=== PATIENT | female | born 1960 | race Caucasian/White ===

== ENCOUNTER → 2021-12-17 11:08 | Outpatient (CLI) | payer OTHER, SELFPAY | PROVIDERS: PCP Student in an Organized Health Care Education/Training Program; Referring Provider Student in an Organized Health Care Education/Training Program; Visit Provider Student in an Organized Health Care Education/Training Program | DX: M79.673 Pain in unspecified foot (principal); G62.9 Polyneuropathy, unspecified | CPT/HCPCS: 95886; 95909 ==

== ENCOUNTER 2022-07-23 14:06 | Emergency (ER) | payer OTHER, SELFPAY ==
[2022-07-23] VITALS (7 sets, daily range): BP systolic 135–163; BP diastolic 67–89; PULSE 76–105; RESP 16–20; TEMP 36.4; O2SAT 98–100; BMI 41.9
[2022-07-23 14:48] LABS: Add Manual Diff / Slide Review NO; Basophils Absolute Auto 100 /uL (0-100); Basophils Percent Auto 0.7 % (0-2); Eosinophils Absolute Auto 300 /uL (0-450); Hematocrit 42.4 % (36-46); Hemoglobin 14.3 g/dL (12.0-16.0); Lymphocytes Absolute Auto 1700 /uL (1100-4500); Lymphocytes Percent Auto 22.2 % (25-40); Mean Corpuscular HGB Conc 33.7 % (30-36); Mean Corpuscular Hemoglobin 29.1 PG (26-34); Mean Corpuscular Volume 86.3 fL (80-100); Monocytes Absolute Auto 500 /uL (0-900); Monocytes Percent Auto 5.9 % (3-14); Neutrophils Absolute Auto 5300 /uL (1500-7000); Neutrophils Percent Auto 67.2 % (50-75); Platelet Count 197 X10^3/uL (150-400); Red Blood Cell Count 4.92 X10^6/uL (4.0-5.2); Red Cell Distribution Width 14.1 % (11.6-14.8); White Blood Cell Count 7.8 X10^3/uL (4.5-11.0)
[2022-07-23 15:00] LABS: Alanine Aminotransferase 34 IU/L (<35); Albumin 4.8 g/dL (3.5-5.0); Albumin Globulin Ratio 1.5 (1.0-2.8); Alkaline Phosphatase 95 U/L (38-126); Aspartate Aminotransferase 33 IU/L (14-36); BUN Creatinine Ratio 29.6 (6-22); Bilirubin Total 1.9 mg/dL (0.2-1.3); Blood Urea Nitrogen 16 mg/dL (7-17); Calcium 9.6 mg/dL (8.4-10.2); Carbon Dioxide 25 mmol/L (22-32); Chloride 102 mmol/L (98-107); Estimated Glomerular Filt Rate > 60 mL/min (>60); Globulin 3.3 g/dL (1.7-4.1); Glucose 111 mg/dL (80-110); HEMOLYSIS < 15 (0-50); Potassium 3.6 mmol/L (3.4-5.1); Sodium 140 mmol/L (137-145); Total Protein 8.1 g/dL (6.3-8.2)
[2022-07-23 15:08] LABS: NT-proBNP (BNP-Adult 18+) 69 pg/mL (<125)
--- NOTE | 2022-07-23 17:15 | PC.NURSE ---
in waiting room at 1600, spouse got her a large aluminum baking hernandez to soak her feet in cold water.
--- NOTE | 2022-07-23 17:41 | ED_ITS ---
HPI - Extremity Injury (Lower) <Morris Black PA-C - Last Filed: 07/23/22 20:23> General Chief Complaint: Extremity Injury, Lower Stated Complaint: both feet are swollen & in pain t-5 Time Seen by Provider: 07/23/22 17:17 Source: patient Mode of arrival: Ambulatory History of Present Illness HPI Narrative: 62-year-old female presents to the ED with 3 days of worsening bilateral foot pain. Patient states that her feet have been swelling and have been painful for the past few years, however there has been a recent exacerbation in her symptoms over the last 3 days. Patient denies numbness, tingling, weakness. Patient is able to bear weight and walk. Patient denies cardiac history. Patient denies shortness of breath, chest pain, fever, chills. Patient denies trauma. Related Data Home Medications Medication Instructions Recorded Confirmed citalopram 20 mg tablet 20 mg PO HS ##0 11/12/10 loratadine 10 mg tablet 10 mg PO HS ##0 08/06/16 Previous Rx's Medication Instructions Recorded aspirin 81 mg tablet,delayed 81 mg PO BID #60 tabs 08/10/16 release oxycodone 5 mg tablet 5 mg PO Q4HP PRN #90 tabs 08/10/16 PROMETHAZINE HCL/CODEINE 5 ml PO Q6HP PRN #60 mL 11/21/16 prednisone 20 mg tablet 40 mg PO [facility] 4 days #0 tabs 11/21/16 furosemide 20 mg tablet (Lasix) 20 mg PO DAILY #10 tabs 07/23/22 Allergies Allergy/AdvReac Type Severity Reaction Status Date / Time Sulfa (Sulfonamide Allergy Severe RASH Unverified 11/30/17 11:51 Antibiotics) [SULFA (SULFONAMIDE ANTIBIOTICS)] Penicillins [PENICILLINS] Allergy Unknown UNKNOWN Unverified 11/30/17 11:51 PER PT HAPPENED WHEN I WAS 2 Review of Systems <Morris Black PA-C - Last Filed: 07/23/22 20:23> Review of Systems ROS Unobtainable: All systems reviewed & are unremarkable except as noted in HPI and below Constitutional Constitutional: Denies chills, Denies fatigue, Denies fever(s), Denies frequent falls, Denies lethargy and Denies weakness Eyes Eyes: Denies change in vision, Denies eye discharge, Denies irritation and Denies loss of vision ENT Ears, Nose, Mouth, and Throat: Denies change in voice, Denies dizziness, Denies neck pain, Denies sore throat and Denies throat swelling Cardiovascular Cardiovascular: Denies chest pain, Denies irregular heart rhythm, Denies lightheadedness, Denies palpitations, Denies dyspnea, Denies dyspnea on exertion and Denies orthopnea Respiratory Respiratory: Denies cough, Denies dyspnea, Denies dyspnea on exertion and Denies wheezing Gastrointestinal Gastrointestinal: Denies abdominal pain, Denies change in bowel habits, Denies diarrhea, Denies nausea and Denies vomiting Genitourinary Genitourinary: Denies hematuria, Denies flank pain, Denies urinary incontinence and Denies urinary urgency Musculoskeletal Musculoskeletal: Denies back pain, Denies muscle weakness, Denies neck pain, Denies numbness and Denies tingling Comments: Bilateral foot pain and swelling Integumentary/Breasts Skin/Breast: Denies pruritus, Denies erythema, Denies rash and Denies wounds Neurologic Neurologic: Denies behavioral changes, Denies confusion, Denies dizziness, Denies frequent falls, Denies loss of vision, Denies numbness, Denies tingling and Denies weakness Psychiatric Psychiatric: Denies anxiety, Denies behavioral changes, Denies confusion, Denies depression, Denies homicidal ideation and Denies suicidal ideation Endocrine Endocrine: Denies fatigue, Denies flushing and Denies palpitations Hematologic/Lymphatic Hematologic/Lymphatic: Denies easy bruising Allergic/Immunologic Allergic/Immunologic: Denies urticaria, Denies throat swelling and Denies wheezing Patient History <Morris Black PA-C - Last Filed: 07/23/22 20:23> Social History Smoking Status: Never smoker Smoking Status: Never smoker Substance Use Type: does not use Exam <Morris Black PA-C - Last Filed: 07/23/22 20:23> Narrative Exam Narrative: Const General:?cooperative, healthy appearing and comfortable [facility] Head:?normal to inspection Ears:?hearing grossly normal bilaterally Nose:?external nose normal Face and sinus:?normal facial exam and sinuses nontender Mouth:?oral mucosae normal Throat:?posterior oropharynx normal Eyes General:?appearance normal, both eyes and all related structures Neck Neck:?normal visual inspection and no lymphadenopathy noted Resp Effort & Inspection:?normal respiratory effort Auscultation:?clear to auscultation bilaterally Cardio Rate:?regular rate Rhythm:?regular rhythm Musculoskeletal Bilateral feet appear erythematous, swollen. There are a few scattered abr asions on the top of the right foot. There is no sign of cellulitis. Strength and sensation is intact. Patient is able to bear weight and walk. Pulses are intact bilaterally. Patient is neurovascularly intact. Neuro General:?patient alert, patient awake and patient oriented x3 Initial Vital Signs Initial Vital Signs: Vital Signs Temperature 97.6 F 07/23/22 14:13 Pulse Rate 105 H 07/23/22 14:13 Respiratory Rate 20 07/23/22 14:13 Blood Pressure 137/71 07/23/22 14:13 Pulse Oximetry 98 07/23/22 14:13 Oxygen Delivery Method 07/23/22 14:13 <Luz Hunter DO - Last Filed: 07/24/22 01:34> Initial Vital Signs Initial Vital Signs: Vital Signs Temperature 97.6 F 07/23/22 14:13 Pulse Rate 105 H 07/23/22 14:13 Respiratory Rate 20 07/23/22 14:13 Blood Pressure 137/71 07/23/22 14:13 Pulse Oximetry 98 07/23/22 14:13 Oxygen Delivery Method 07/23/22 14:13 Course <Morris Black PA-C - Last Filed: 07/23/22 20:23> Orders Ordered: ED Orders 07/23/22 14:30 BNP [NT-proBNP (BNP-Adult 18+)] Stat Complete Blood Count AUTO DIFF Stat Comprehensive Metabolic Panel Stat Vital Signs Vital signs: Vital Signs - 8 hr 07/23/22 17:30 07/23/22 17:31 07/23/22 17:31 Pulse Rate 84 76 Respiratory Rate 16 Blood Pressure 143/67 H Pulse Oximetry 99 100 Oxygen Delivery Method Room Air 07/23/22 18:00 07/23/22 18:00 07/23/22 18:30 Pulse Rate 80 Respiratory Rate Blood Pressure 140/70 135/79 Pulse Oximetry 100 Oxygen Delivery Method 07/23/22 18:30 Pulse Rate 92 H Respiratory Rate Blood Pressure Pulse Oximetry 100 Oxygen Delivery Method <DO Noy Cuevas Last Filed: 07/24/22 01:34> Orders Ordered: ED Orders 07/23/22 14:30 BNP [NT-proBNP (BNP-Adult 18+)] Stat Complete Blood Count AUTO DIFF Stat Comprehensive Metabolic Panel Stat Vital Signs Vital signs: Vital Signs - 8 hr 07/23/22 17:30 07/23/22 17:31 07/23/22 17:31 Pulse Rate 84 76 Respiratory Rate 16 Blood Pressure 143/67 H Pulse Oximetry 99 100 Oxygen Delivery Method Room Air 07/23/22 18:00 07/23/22 18:00 07/23/22 18:30 Pulse Rate 80 Respiratory Rate Blood Pressure 140/70 135/79 Pulse Oximetry 100 Oxygen Delivery Method 07/23/22 18:30 Pulse Rate 92 H Respiratory Rate Blood Pressure Pulse Oximetry 100 Oxygen Delivery Method MDM - Extremity Injury (Lower) <Morris Black PA-C - Last Filed: 07/23/22 20:23> Lab Data Result diagrams: 07/23/22 14:30 07/23/22 14:30 Labs: Lab Results 07/23/22 07/23/22 Range/Units 14:30 14:30 WBC 7.8 (4.5-11.0) X10^3/uL RBC 4.92 (4.0-5.2) X10^6/uL Hgb 14.3 (12.0-16.0) g/dL Hct 42.4 (36-46) % MCV 86.3 (80-100) fL MCH 29.1 (26-34) PG MCHC 33.7 (30-36) % RDW 14.1 (11.6-14.8) % Plt Count 197 (150-400) X10^3/uL Neut % (Auto) 67.2 (50-75) % Lymph % (Auto) 22.2 L (25-40) % Isabella % (Auto) 5.9 (3-14) % Eos % (Auto) 4.0 (2-4) % Baso % (Auto) 0.7 (0-2) % Neut # (Auto) 5300 (7023-7324) /uL Lymph # (Auto) 1700 (3632-3718) /uL Isabella # (Auto) 500 (0-900) /uL Eos # (Auto) 300 (0-450) /uL Baso # (Auto) 100 (0-100) /uL Sodium 140 (137-145) mmol/L Potassium 3.6 (3.4-5.1) mmol/L Chloride 102 (98-107) mmol/L Carbon Dioxide 25 (22-32) mmol/L BUN 16 (7-17) mg/dL Creatinine 0.54 (0.52-1.04) mg/dL Estimated GFR > 60 (>60) mL/min BUN/Creatinine Ratio 29.6 H (6-22) Glucose 111 H (80-110) mg/dL Calcium 9.6 (8.4-10.2) mg/dL Total Bilirubin 1.9 H (0.2-1.3) mg/dL AST 33 (14-36) IU/L ALT 34 (<35) IU/L Alkaline Phosphatase 95 (38-126) U/L NT-Pro-B Natriuret Pep 69 (<125) pg/mL Total Protein 8.1 (6.3-8.2) g/dL Albumin 4.8 (3.5-5.0) g/dL Globulin 3.3 (1.7-4.1) g/dL Albumin/Globulin Ratio 1.5 (1.0-2.8) MDM Narrative Medical decision making narrative: 62-year-old female presents to the ED with 3 days of worsening bilateral foot pain. Concern for PVD versus PAD versus CHF versus other. Unlikely cellulitis or DVT, given bilateral and symmetric nature of the swelling and erythema. Disc ussed vascular and Cardiology follow-up with patient. Recommend trialing Lasix for a few days to see if her symptoms improve, although the BNP was not elevated. Patient agrees to follow-up with Cardiology, vascular, PCP and trial the Lasix. ED return precautions were discussed with patient. Patient verbalized understanding. <Luz Hunter, DO - Last Filed: 07/24/22 01:34> Lab Data Labs: Lab Results 07/23/22 07/23/22 Range/Units 14:30 14:30 WBC 7.8 (4.5-11.0) X10^3/uL RBC 4.92 (4.0-5.2) X10^6/uL Hgb 14.3 (12.0-16.0) g/dL Hct 42.4 (36-46) % MCV 86.3 (80-100) fL MCH 29.1 (26-34) PG MCHC 33.7 (30-36) % RDW 14.1 (11.6-14.8) % Plt Count 197 (150-400) X10^3/uL Neut % (Auto) 67.2 (50-75) % Lymph % (Auto) 22.2 L (25-40) % Isabella % (Auto) 5.9 (3-14) % Eos % (Auto) 4.0 (2-4) % Baso % (Auto) 0.7 (0-2) % Neut # (Auto) 5300 (4720-8238) /uL Lymph # (Auto) 1700 (7751-7693) /uL Isabella # (Auto) 500 (0-900) /uL Eos # (Auto) 300 (0-450) /uL Baso # (Auto) 100 (0-100) /uL Sodium 140 (137-145) mmol/L Potassium 3.6 (3.4-5.1) mmol/L Chloride 102 (98-107) mmol/L Carbon Dioxide 25 (22-32) mmol/L BUN 16 (7-17) mg/dL Creatinine 0.54 (0.52-1.04) mg/dL Estimated GFR > 60 (>60) mL/min BUN/Creatinine Ratio 29.6 H (6-22) Glucose 111 H (80-110) mg/dL Calcium 9.6 (8.4-10.2) mg/dL Total Bilirubin 1.9 H (0.2-1.3) mg/dL AST 33 (14-36) IU/L ALT 34 (<35) IU/L Alkaline Phosphatase 95 (38-126) U/L NT-Pro-B Natriuret Pep 69 (<125) pg/mL Total Protein 8.1 (6.3-8.2) g/dL Albumin 4.8 (3.5-5.0) g/dL Globulin 3.3 (1.7-4.1) g/dL Albumin/Globulin Ratio 1.5 (1.0-2.8) Discharge Plan Departure Patient Disposition: Home Clinical Impression: Foot pain Instructions: DI for Foot Pain Activity Restrictions/Additional Instructions: You were evaluated in the ED today for bilateral foot pain. Your labs and physical exam were reassuring. Your pulses are intact in both feet. You have good strength and sensation. It is possible that your foot pain and swelling mi ght be related to cardiac causes. You are being given a trial of Lasix to take for the next few days to see if your symptoms improve. Please also follow-up with cardiology and vascular specialist for further evaluation. Return to the ED if you experience chest pain, shortness of breath, numbness, tingling, weakness. Prescriptions: New furosemide [Lasix] 20 mg tablet 20 mg PO DAILY Qty: 10 0RF No Action citalopram 20 MG tablet 20 mg PO HS Qty: 0 loratadine 10 MG tablet 10 mg PO HS Qty: 0 aspirin 81 MG tablet,delayed release (DR/EC) 81 mg PO BID Qty: 60 0RF oxycodone 5 MG tablet 5 mg PO Q4HP PRNQty: 90 0RF prednisone 20 MG tablet 40 mg PO [facility]CC 4 Days Qty: 0 0RF PROMETHAZINE HCL/CODEINE 5 ml PO Q6HP PRNQty: 60 0RF Referrals: Duane Lawrence DO [Primary Care Provider] - Visit Report Forms: Patient Portal/API <Luz Hunter DO - Last Filed: 07/24/22 01:34> Cosign ED Attending Josiasature Attestation: I was immediately available in the department for consultation. Documentation has been reviewed. I agree with assessment and plan.
== END 2022-07-23 18:36 | disposition home or self-care (01) ==
PROVIDERS: Emergency Medicine; Emergency Provider Student in an Organized Health Care Education/Training Program; PCP Student in an Organized Health Care Education/Training Program
DX: M79.672 Pain in left foot (principal); M79.671 Pain in right foot
CPT/HCPCS: 36415; 80053; 83880; 85025; 99283

== ENCOUNTER → 2022-08-09 06:58 | Outpatient (CLI) | payer OTHER, SELFPAY ==
--- NOTE | 2022-08-09 | DI.ECHO.S_ITS ---
[place] [facility]---------+ [facility] +---------+ : : [address] : [address] : : : : [id number] : : : : Phone: [phone]+ Echocardiogram Report + + :Name: ZOFIA TOMAS Study Date: 08/09/2022 Height: 66 in : :[facility] ReadingLocation: Weight: 260 lb : : Gender: Female BSA: 2.2 m2 : :: 1960 Age: 62 yrs BP: 120/77 mmHg: :Reason For Study: EDEMA : : Performed By: Enrique Delgado : :Referring: ADRIANO MIRANDA : + + Interpretation Summary The left ventricle is normal in size. Left ventricular systolic function appears normal without focal wall motion abnormalities. The ejection fraction is estimated to be 60-65%. Diastolic parameters suggest a relaxation abnormality of the left ventricle, consistent with probable normal filling pressures. The right ventricle is normal in size and function. The right ventricular systolic pressure is estimated to be at least 26 mmHg based on an estimated right atrial pressure of 3 mm Hg. Both atria are normal in size. There is moderate aortic stenosis. The calculated aortic valve area is 1.3 cm2. The peak aortic velocity is 3.73 m/sec. There is no other significant valvular heart disease. The aortic root is normal size. Procedure: A two-dimensional transthoracic echocardiogram with color flow and Doppler was performed. The study quality was technically adequate. There is no prior echocardiogram noted for this patient. The patient was in normal sinus rhythm during the exam. Left Ventricle: The left ventricle is normal in size. There is normal left ventricular wall thickness. Left ventricular systolic function appears normal without focal wall motion abnormalities. The ejection fraction is estimated to be 60-65%. Diastolic parameters suggest a relaxation abnormality of the left ventricle, consistent with probable normal filling pressures. Right Ventricle: The right ventricle is normal in size and function. Atria: Both atria are normal in size. There is no Doppler evidence for an atrial septal defect. Mitral Valve: There is mild mitral annular calcification. There is trace mitral regurgitation. Aortic Valve: The aortic valve is moderately calcified. There is moderate aortic stenosis. The peak aortic velocity is 3.73 m/sec. The aortic valve mean gradient is 35.3 mmHg. The calculated aortic valve area is 1.3 cm2. No aortic regurgitation is present. Tricuspid Valve: The tricuspid valve is normal in structure and function. There is trace tricuspid regurgitation. The right ventricular systolic pressure is estimated to be at least 26 mmHg based on an estimated right atrial pressure of 3 mm Hg. Pulmonic Valve: The pulmonic valve is normal in structure and function. There is no pulmonic valvular regurgitation. There is no other significant valvular heart disease. Great Vessels: The aortic root is normal size. The dimensions of the ascending aorta are normal. The pulmonary artery is normal size. The IVC is of normal diameter and collapses greater than 50% with a sniff. This suggests a low right atrial pressure of 3 mm Hg. Pericardium/ Pleura There is no pericardial effusion. There is no pleural effusion. MMode/2D Measurements & Calculations LVIDd: 5.0 cm LVOT diam: 2.6 cm LVIDs: 3.2 cm Ao root diam: 3.2 cm FS: 36.1 % asc Aorta Diam: 3.3 cm EPSS: 0.91 cm Ao Arch Diam (Prox Trans): 2.7 cm IVSd: 0.99 cm LVPWd: 1.0 cm LV clemons. diameter/BSA (cm/m^2): 2.2 LV sys. diameter/BSA (cm/m^2): 1.4 LA A2 area: 20.4 cm2 RA long axis: 4.6 cm LA A4 area: 17.9 cm2 RA area: 15.6 cm2 LA length (vol): 5.4 cm RA vol: 44.8 ml LA vol: 57.3 ml RA : 20.1 ml/m2 LA vol index: 25.6 ml/m2 IVC diam: 1.6 cm RVD1 (basal): 3.6 cm RVD2 (mid): 3.8 cm TAPSE: 1.9 cm Doppler Measurements & Calculations Ao V2 max: 373.7 cm/sec LVOT Max Madhav: 90.6 cm/sec Ao V2 mean: 283.1 cm/sec LV V1 max P.3 mmHg Ao max P.9 mmHg LV V1 VTI: 26.1 cm Ao mean P.3 mmHg SRUTHI(I,D): 1.6 cm2 Ao V2 VTI: 88.3 cm SRUTHI(V,D): 1.3 cm2 sev ratio: 0.30 SRUTHI indexed to BSA (cm^2/m^2): 0.72 MV E max madhav: 81.8 cm/sec TR max madhav: 241.8 cm/sec MV A max madhav: 98.6 cm/sec TR max P.4 mmHg MV E/A: 0.83 PA V2 max: 81.0 cm/sec Med Peak E' Madhav: 6.8 cm/sec PA V2 mean: 55.8 cm/sec E/E' med: 12.0 PA mean P.4 mmHg Lat Peak E' Madhav: 5.6 cm/sec PA pr(Accel): 39.6 mmHg E/E' lat: 14.5 E/e' average: 13.3 MV dec time: 0.19 sec SV(LVOT): 142.7 ml Reading Physician:05:21 PM
== END ==
PROVIDERS: PCP Student in an Organized Health Care Education/Training Program; Referring Provider Student in an Organized Health Care Education/Training Program; Visit Provider Student in an Organized Health Care Education/Training Program
DX: R60.0 Localized edema (principal); I08.0 Rheumatic disorders of both mitral and aortic valves
CPT/HCPCS: 93306

== ENCOUNTER 2022-08-11 22:45 | Emergency (ER) | payer OTHER, SELFPAY ==
[2022-08-11 22:45] VITALS: BP 142/74; PULSE 107; RESP 20; TEMP 36.4; O2SAT 97
[2022-08-11 22:54] VITALS: BP 142/74; PULSE 107; O2SAT 98
[2022-08-11 23:00] VITALS: BP 138/78; PULSE 100; O2SAT 99
--- NOTE | 2022-08-11 23:09 | ED.EXTPRO ---
HPI - Extremity Problem General Chief complaint: Extremity Problem,Nontraumatic Stated complaint: sores on both feet Time Seen by Provider: 08/11/22 22:55 Source: family Mode of arrival: Wheelchair History of Present Illness HPI Narrative: Patient is a 62-year-old female who is here for evaluation sores and redness and drainage of sores on both of her feet. This has been present for several months. It has been worsening over the past couple weeks. She has seen her primary doctor. She sees her primary doctor has ordered some studies but his specific diagnosis has not been made. She was supposed to see Dermatology yesterday but this was canceled because of the weather. She is a follow-up with them tomorrow. She has used some topical steroids which did not seem to improve any of the symptoms. She also states that it did not make things worse. They have also been using topical antibiotic ointment which also does not seem to be helping symptoms. Is difficult for her to walk because of the pain. She does describe lower extremity swelling. No fevers. Related Data Home Medications Medication Instructions Recorded Confirmed citalopram 20 mg tablet 20 mg PO HS ##0 11/12/10 loratadine 10 mg tablet 10 mg PO HS ##0 08/06/16 Previous Rx's Medication Instructions Recorded aspirin 81 mg tablet,delayed 81 mg PO BID #60 tabs 08/10/16 release oxycodone 5 mg tablet 5 mg PO Q4HP PRN #90 tabs 08/10/16 PROMETHAZINE HCL/CODEINE 5 ml PO Q6HP PRN #60 mL 11/21/16 prednisone 20 mg tablet 40 mg PO [facility] 4 days #0 tabs 11/21/16 furosemide 20 mg tablet (Lasix) 20 mg PO DAILY #10 tabs 07/23/22 doxycycline monohydrate 100 mg 100 mg PO BID 10 days #20 tabs 08/11/22 tablet Allergies Allergy/AdvReac Type Severity Reaction Status Date / Time Sulfa (Sulfonamide Allergy Severe RASH Unverified 11/30/17 11:51 Antibiotics) [SULFA (SULFONAMIDE ANTIBIOTICS)] Penicillins [PENICILLINS] Allergy Unknown UNKNOWN Unverified 11/30/17 11:51 PER PT HAPPENED WHEN I WAS 2 Review of Systems Constitutional Constitutional: Reports system reviewed and no additional complaints, except as documented Musculoskeletal Musculoskeletal: Reports system reviewed and no additional complaints, except as documented Integumentary/Breasts Skin/Breast: Reports system reviewed and no additional complaints, except as documented Neurologic Neurologic: Reports system reviewed and no additional complaints, except as documented Hematologic/Lymphatic On Anticoagulants: No Patient History Social History Smoking Status: Never smoker Smoking Status: Never smoker Substance Use Type: does not use Exam Initial Vital Signs Initial Vital Signs: Vital Signs Temperature 97.5 F L 08/11/22 22:45 Pulse Rate 107 H 08/11/22 22:45 Respiratory Rate 20 08/11/22 22:45 Blood Pressure 142/74 H 08/11/22 22:45 Pulse Oximetry 97 08/11/22 22:45 Oxygen Delivery Method 08/11/22 22:45 Const General: cooperative and comfortable HENMT Head: normal to inspection Resp Effort & Inspection: normal respiratory effort Cardio Rate: regular rate Skin Other: Patient does have redness and ulcerations and thickness to both of her lower extremities from her toes to just proximal to her ankles. It is equal on both sides. There is some clear drainage from the skin in this area. There are no pustules noted. Extrem General: edema Course Orders Ordered: ED Orders 08/11/22 21:07 Wound Culture and Gram Stain Stat Wound Culture and Gram Stain Stat Vital Signs Vital signs: Vital Signs - 8 hr 08/11/22 22:45 08/12/22 00:11 08/11/22 22:54 Temperature 97.5 F L 98.1 F Pulse Rate 107 H 95 H Respiratory Rate 20 18 Blood Pressure 142/74 H 154/88 H 142/74 H Pulse Oximetry 97 100 Oxygen Delivery Method Room Air Room Air 08/11/22 22:54 08/11/22 23:00 08/11/22 23:00 Temperature Pulse Rate 107 H 100 H Respiratory Rate Blood Pressure 138/78 Pulse Oximetry 98 99 Oxygen Delivery Method 08/11/22 23:30 08/11/22 23:30 08/12/22 00:00 Temperature Pulse Rate 95 H Respiratory Rate Blood Pressure 157/75 H 164/77 H Pulse Oximetry 99 Oxygen Delivery Method 08/12/22 00:00 Temperature Pulse Rate 100 H Respiratory Rate Blood Pressure Pulse Oximetry 99 Oxygen Delivery Method MDM - Extremity (Nontraumatic) MDM Narrative Medical decision making narrative: Patient is afebrile. Nontoxic appearing. Does have swelling to both of her lower extremities. Symptoms have been present for the past several months. She has seen her primary doctor. She is scheduled see Dermatology tomorrow. The redness is bilateral and it is equal. Given her presentation feel this is most likely more of a dermatitis/venous stasis changes rather than cellulitis however the patient has not been on any oral antibiotics. Cultures were obtained of both lower extremities. Will start her on doxycycline to see if this does not help her symptoms. Will have her keep her appointment with Dermatology tomorrow. She was given return precautions. She expressed understanding and agreement. Discharge Plan Departure Patient Disposition: Home Clinical Impression: Rash Activity Restrictions/Additional Instructions: I recommend you take the antibiotics as directed. They were sent to [facility] in [place]. I think that the appointment with Dermatology that you have tomorrow is very appropriate. You can let them know that we did do wound cultures today. These take several days to result. Return to the emergency department for any new symptoms. Prescriptions: New doxycycline monohydrate 100 mg tablet 100 mg PO BID 10 Days Qty: 20 0RF No Action citalopram 20 MG tablet 20 mg PO HS Qty: 0 loratadine 10 MG tablet 10 mg PO HS Qty: 0 aspirin 81 MG tablet,delayed release (DR/EC) 81 mg PO BID Qty: 60 0RF oxycodone 5 MG tablet 5 mg PO Q4HP PRNQty: 90 0RF prednisone 20 MG tablet 40 mg PO AMCC 4 Days Qty: 0 0RF PROMETHAZINE HCL/CODEINE 5 ml PO Q6HP PRNQty: 60 0RF furosemide [Lasix] 20 mg tablet 20 mg PO DAILY Qty: 10 0RF Referrals: Duane Lawrence DO [Primary Care Provider] - Visit Report Forms: Patient Portal/API
[2022-08-11 23:30] VITALS: BP 157/75; PULSE 95; O2SAT 99
[2022-08-12] VITALS: BP 164/77; PULSE 100; O2SAT 99
--- NOTE | 2022-08-12 00:09 | PC.NURSE ---
Xeroform gauze & kerlix dressings applied to bilateral feet. Pt tolerated well.
[2022-08-12 00:11] VITALS: BP 154/88; PULSE 95; RESP 18; TEMP 36.7; O2SAT 100
== END 2022-08-12 00:13 | disposition home or self-care (01) ==
PROVIDERS: Emergency Provider Emergency Medicine; PCP Student in an Organized Health Care Education/Training Program
DX: R21 Rash and other nonspecific skin eruption (principal); Z79.899 Other long term (current) drug therapy
CPT/HCPCS: 87070; 87075; 87077; 87147; 87185; 87186; 87205; 99282

== ENCOUNTER → 2022-09-01 09:27 | Outpatient (CLI) | payer OTHER, SELFPAY | PROVIDERS: PCP Student in an Organized Health Care Education/Training Program; Referring Provider Student in an Organized Health Care Education/Training Program; Visit Provider Surgery | DX: R60.0 Localized edema (principal); L03.119 Cellulitis of unspecified part of limb | CPT/HCPCS: 11042; 97597; 97598; 99204; 99213 ==

== ENCOUNTER → 2022-09-06 15:15 | Outpatient (CLI) | payer OTHER, SELFPAY | PROVIDERS: PCP Student in an Organized Health Care Education/Training Program; Referring Provider Student in an Organized Health Care Education/Training Program; Visit Provider Surgery | DX: R60.0 Localized edema (principal); L03.119 Cellulitis of unspecified part of limb; L97.822 Non-pressure chronic ulcer of other part of left lower leg with fat layer exposed; L97.312 Non-pressure chronic ulcer of right ankle with fat layer exposed; L97.522 Non-pressure chronic ulcer of other part of left foot with fat layer exposed | CPT/HCPCS: 99213 ==

== ENCOUNTER → 2022-09-13 13:57 | Outpatient (CLI) | payer OTHER, SELFPAY | PROVIDERS: PCP Student in an Organized Health Care Education/Training Program; Referring Provider Student in an Organized Health Care Education/Training Program; Visit Provider Surgery | DX: L97.822 Non-pressure chronic ulcer of other part of left lower leg with fat layer exposed (principal); L97.312 Non-pressure chronic ulcer of right ankle with fat layer exposed; L97.522 Non-pressure chronic ulcer of other part of left foot with fat layer exposed; R60.0 Localized edema; R21 Rash and other nonspecific skin eruption | CPT/HCPCS: 99213; 99214 ==

== ENCOUNTER → 2022-09-17 14:48 | Outpatient (CLI) | payer OTHER, SELFPAY ==
--- NOTE | 2022-09-17 | DI.US.S_ITS ---
PROCEDURE: US ARTERIAL DUPLEX LE BI INDICATIONS: EDEMA/DERMATITIS TECHNIQUE: Color and pulse Doppler interrogation was performed of both lower extremity arterial systems, with image documentation. COMPARISON: None. FINDINGS: Right lower extremity: Common femoral artery: 131 cm/sec, with triphasic flow. Deep femoral artery: 43 cm/sec, with biphasic flow. Proximal superficial femoral artery: 137 cm/sec, with triphasic flow. Mid superficial femoral artery: 102 cm/sec, with triphasic flow. Distal superficial femoral artery: 81 cm/sec, with triphasic flow. Popliteal artery: 73 cm/sec, with triphasic flow. Posterior tibial artery: 35 cm/sec, with triphasic flow. Anterior tibial artery/dorsalis pedis: 64/22 cm/sec, with triphasic/biphasic flow. Nixon-scale imaging description: No significant plaque. Mildly enlarged lymph nodes measuring 1.3 x 0.7 x 1.3 cm. Left lower extremity: Common femoral artery: 134 cm/sec, with triphasic flow. Deep femoral artery: 67 cm/sec, with triphasic flow. Proximal superficial femoral artery: 122 cm/sec, with triphasic flow. Mid superficial femoral artery: 103 cm/sec, with triphasic flow. Distal superficial femoral artery: 86 cm/sec, with triphasic flow. Popliteal artery: 76 cm/sec, with triphasic flow. Posterior tibial artery: 49 cm/sec, with triphasic flow. Anterior tibial artery/dorsalis pedis: 37/not well seen cm/sec, with biphasic flow. Nixon-scale imaging description: No significant plaque. Mildly enlarged lymph nodes measuring 1.8 x 0.9 x 1.4 cm. IMPRESSION: No significant arterial stenosis in the lower extremities bilaterally. Dictated by: Wyatt Bryson M.D. on 09/17/2022 at 15:45 Approved by: Wyatt Bryson M.D. on 09/17/2022 at 15:48
== END ==
PROVIDERS: PCP Student in an Organized Health Care Education/Training Program; Referring Provider Student in an Organized Health Care Education/Training Program; Visit Provider Student in an Organized Health Care Education/Training Program
DX: R60.0 Localized edema (principal); L30.9 Dermatitis, unspecified
CPT/HCPCS: 93925

== ENCOUNTER → 2022-10-04 09:58 | Outpatient (CLI) | payer OTHER, SELFPAY | PROVIDERS: PCP Student in an Organized Health Care Education/Training Program; Referring Provider Student in an Organized Health Care Education/Training Program; Visit Provider Surgery | DX: R21 Rash and other nonspecific skin eruption (principal); R60.0 Localized edema | CPT/HCPCS: 99212; 99213 ==

== ENCOUNTER → 2022-10-11 10:09 | Outpatient (CLI) | payer OTHER, SELFPAY | PROVIDERS: PCP Student in an Organized Health Care Education/Training Program; Referring Provider Student in an Organized Health Care Education/Training Program; Visit Provider Surgery | DX: R60.0 Localized edema (principal); R21 Rash and other nonspecific skin eruption | CPT/HCPCS: 99211; 99213 ==

== ENCOUNTER 2024-05-08 18:24 | Emergency (ER) | payer MEDICARE, OTHER, SELFPAY ==
[2024-05-08 18:28] VITALS: BP 140/82; PULSE 105; RESP 18; TEMP 37.1; O2SAT 98; BMI 41.9
--- NOTE | 2024-05-08 18:33 | DI.RAD.S_ITS ---
PROCEDURE: XR FOOT RT MIN 3V INDICATIONS: injury/pain/swelling. Dropped glass bowel on foot. TECHNIQUE: 3 views of the foot were acquired. COMPARISON: None. FINDINGS: Bones: Extra-articular fracture the distal 1st phalanx. Intra-articular fracture of the 1st proximal phalanx head. Hallux valgus. Plantar calcaneal enthesophyte. Soft tissues: No tibiotalar joint effusion. Achilles tendon appears normal. Significant dorsal foot swelling. IMPRESSION: Extra-articular fracture of the distal 1st phalanx. Intra-articular fracture of the 1st proximal phalanx head. Dictated by: Constantine Comer M.D. on 05/08/2024 at 19:00 Approved by: Constantine Comer M.D. on 05/08/2024 at 19:01
--- NOTE | 2024-05-08 19:53 | ED.LOWEXIN ---
HPI - Extremity Injury (Lower) General Chief Complaint: Extremity Injury, Lower Stated Complaint: Rt foot injury, dropped 5 gal bottle on it Time Seen by Provider: 05/08/24 19:35 Source: patient Mode of arrival: Ambulatory History of Present Illness HPI Narrative: 63-year-old female presents for right foot injury. States that a 5 gal glass bottle of water was accidentally dropped onto her toe. Related Data Home Medications Medication Instructions Recorded Confirmed citalopram 20 mg tablet 20 mg PO HS ##0 11/12/10 loratadine 10 mg tablet 10 mg PO HS ##0 08/06/16 Previous Rx's Medication Instructions Recorded aspirin 81 mg tablet,delayed 81 mg PO BID #60 tabs 08/10/16 release oxycodone 5 mg tablet 5 mg PO Q4HP PRN #90 tabs 08/10/16 PROMETHAZINE HCL/CODEINE 5 ml PO Q6HP PRN #60 mL 11/21/16 prednisone 20 mg tablet 40 mg (2 x 20 mg) PO [facility] 4 days 11/21/16 #0 tabs furosemide 20 mg tablet (Lasix) 20 mg PO DAILY #10 tabs 07/23/22 hydrocodone 5 mg-acetaminophen 325 1 tab PO Q8H PRN pain #8 tabs 05/08/24 mg tablet Allergies Allergy/AdvReac Type Severity Reaction Status Date / Time Sulfa (Sulfonamide Allergy Severe RASH Unverified 11/30/17 11:51 Antibiotics) [SULFA (SULFONAMIDE ANTIBIOTICS)] Penicillins [PENICILLINS] Allergy Unknown UNKNOWN Unverified 11/30/17 11:51 PER PT HAPPENED WHEN I WAS 2 Patient History Social History Smoking Status: Never smoker Smoking Status: Never smoker Substance Use Type: does not use Exam Initial Vital Signs Initial Vital Signs: Vital Signs Temperature 98.8 F 05/08/24 18:28 Pulse Rate 105 H 05/08/24 18:28 Respiratory Rate 18 05/08/24 18:28 Blood Pressure 140/82 05/08/24 18:28 Pulse Oximetry 98 05/08/24 18:28 Oxygen Delivery Method Room Air 05/08/24 18:28 Const: Awake, alert, no acute distress, nontoxic appearing MSK: Bruising and swelling distal right foot to great toe, large subungual hematoma present Skin: Warm, Dry, intact, no rashes, no laceration Neuro: AO x3, CN II-XII grossly intact, moves all extremities Procedures Nail Trephination Location (toes): first digit Sterile prep: betadine Method of drainage: nail cautery Procedure successful: Yes Patient tolerated procedure: well and no complications Course Orders Ordered: ED Orders 05/08/24 18:33 XR foot RT min 3V Stat Discontinued Medications Hydrocodone Bitart/Acetaminophen (Hydrocodone/Acet 5/325 Tablet) 1 tab PO NOW ONE Stop: 05/08/24 19:54 Last Admin: 05/08/24 19:58 Dose: 1 tab Documented By: ANTHONY Hydrocodone Bitart/Acetaminophen (Hydrocodone/Acet 5/325 Prepack) 1 bottle MISC DIRECTED ONE Stop: 05/08/24 19:54 Last Admin: 05/08/24 20:01 Dose: 1 bottle Documented By: ANTHONY Vital Signs Vital signs: Vital Signs - 8 hr 05/08/24 18:28 Temperature 98.8 F Pulse Rate 105 H Respiratory Rate 18 Blood Pressure 140/82 Pulse Oximetry 98 Oxygen Delivery Method Room Air [facility] - Extremity Injury (Lower) Imaging Data Extremity x-ray #1: Radiologist's Impression: PROCEDURE: XR FOOT RT MIN 3V INDICATIONS: injury/pain/swelling. Dropped glass bowel on foot. TECHNIQUE: 3 views of the foot were acquired. COMPARISON: None. FINDINGS: Bones: Extra-articular fracture the distal 1st phalanx. Intra-articular fracture of the 1st proximal phalanx head. Hallux valgus. Plantar calcaneal enthesophyte. Soft tissues: No tibiotalar joint effusion. Achilles tendon appears normal. Significant dorsal foot swelling. IMPRESSION: Extra-articular fracture of the distal 1st phalanx. Intra-articular fracture of the 1st proximal phalanx head. Dictated by: Constantine Comer M.D. on 05/08/2024 at 19:00 Approved by: Constantine Comer M.D. on 05/08/2024 at 19:01 [facility] Narrative Medical decision making narrative: Pain and swelling of distal right foot after 5 lb glass container dropped onto foot. Large subungual hematoma seen. X-rays show 1st phalanx fracture, no midfoot fracture. Nail trephinated with large amount of blood drained from toe. Wound cleansed by nursing staff, placed in delmer tape, patient given ortho shoe. Rice instructions counseled at bedside. Short course of pain medication provided. Discharge Plan Departure Patient Disposition: Home Clinical Impression: Fracture of toe, Hematoma, subungual, great toe, right Instructions: DI for Toe Fracture, DI for Subungual Hematoma Activity Restrictions/Additional Instructions: Your x-ray showed that you have a fracture of your great toe. You do not have a fracture in the top part of your foot. Wear delmer tape for the next 2-3 weeks while your toe heals. A short course of pain medications has been sent to your pharmacy. Wear a hard-soled shoe when walking to help support your foot. If you notice unusual redness or swelling of your feet please return for repeat evaluation. Prescriptions: New hydrocodone-acetaminophen 5-325 mg tablet 1 tab PO Q8H PRN (Reason: pain) Qty: 8 0RF No Action citalopram 20 MG tablet 20 mg PO HS Qty: 0 loratadine 10 MG tablet 10 mg PO HS Qty: 0 aspirin 81 MG tablet,delayed release (DR/EC) 81 mg PO BID Qty: 60 0RF oxycodone 5 MG tablet 5 mg PO Q4HP PRNQty: 90 0RF prednisone 20 MG tablet 40 mg PO [facility] 4 Days Qty: 0 0RF PROMETHAZINE HCL/CODEINE 5 ml PO Q6HP PRNQty: 60 0RF furosemide [Lasix] 20 mg tablet 20 mg PO DAILY Qty: 10 0RF Referrals: Miscellaneous,Doctor, MD [Primary Care Provider] - Stand Alone Forms: Patient Portal/API
[2024-05-08] MEDS: HYDROCODONE/ACET 5/325 TABLET 1 TAB PO (19:58)
[2024-05-08] MEDS: HYDROCODONE/ACET 5/325 PREPACK 1 BOTTLE MISC (20:01)
--- NOTE | 2024-05-08 20:06 | PC.NURSE ---
Addendum entered by Jayde Lizarraga R.N. 05/08/24 20:49: Great and second toe delmer taped and wrapped with gauze/M ortho boot applied. [place] 5/325 given for 7/10 pain, reassessed before d/c for 3/10 pain pt states tolerating pain. D/C instructions given. Original Note: R great toe wound cleaned with NS and sterile gaze.
== END 2024-05-08 20:54 | disposition home or self-care (01) ==
PROVIDERS: Emergency Provider Emergency Medicine
DX: S92.411A Displaced fracture of proximal phalanx of right great toe, initial encounter for closed fracture (principal); S90.211A Contusion of right great toe with damage to nail, initial encounter; W22.8XXA Striking against or struck by other objects, initial encounter
CPT/HCPCS: 11740; 73630; 99283

== ENCOUNTER → 2024-05-30 08:24 | Outpatient (CLI) | payer MEDICARE, OTHER, SELFPAY | PROVIDERS: Referring Provider Nurse Practitioner Family; Visit Provider Surgery | DX: L89.153 Pressure ulcer of sacral region, stage 3 (principal); L89.313 Pressure ulcer of right buttock, stage 3; M46.28 Osteomyelitis of vertebra, sacral and sacrococcygeal region; E10.628 Type 1 diabetes mellitus with other skin complications; I25.5 Ischemic cardiomyopathy; D64.9 Anemia, unspecified; G81.90 Hemiplegia, unspecified affecting unspecified side | CPT/HCPCS: 11042; 87070; 87077; 87147; 87186; 87205; 99213; 99214 ==

== ENCOUNTER → 2024-05-30 09:37 | Outpatient (CLI) | payer MEDICARE, OTHER, SELFPAY ==
--- NOTE | 2024-05-30 09:40 | DI.RAD.S_ITS ---
PROCEDURE: XR FOOT RT MIN 3V INDICATIONS: FOOT PAIN TECHNIQUE: 3 views of the foot were acquired. COMPARISON: [facility], , XR FOOT RT MIN 3V, 05/08/2024, 18:31. FINDINGS: Bones: Ongoing healing of 1st distal phalanx comminuted fracture and 1st proximal phalanx intra-articular head fracture. Alignment is unchanged compared to prior. Hallux valgus. Plantar and retrocalcaneal enthesophytes. No new fracture identified. Soft tissues: No tibiotalar joint effusion. Achilles tendon appears normal. IMPRESSION: Ongoing healing of distal 1st phalanx and intra-articular 1st proximal phalanx head fracture. Approved by: Cassidy Stevenson M.D.,Ph.D. on 05/31/2024 at 0:04
== END ==
PROVIDERS: PCP Physician Assistant; Referring Provider Nurse Practitioner Family; Visit Provider Nurse Practitioner Family
DX: M79.671 Pain in right foot (principal); S92.404 Nondisplaced unspecified fracture of right great toe; M20.11 Hallux valgus (acquired), right foot
CPT/HCPCS: 73630; 87070; 87205

== ENCOUNTER → 2024-06-06 10:30 | Outpatient (CLI) | payer MEDICARE, OTHER, SELFPAY | LOC: WC 10:37 | PROVIDERS: PCP Physician Assistant; Referring Provider Nurse Practitioner Family; Visit Provider Surgery | DX: S91.301A Unspecified open wound, right foot, initial encounter (principal); L98.8 Other specified disorders of the skin and subcutaneous tissue; R21 Rash and other nonspecific skin eruption; L53.9 Erythematous condition, unspecified; R60.0 Localized edema; S91.201D Unspecified open wound of right great toe with damage to nail, subsequent encounter; G62.9 Polyneuropathy, unspecified | CPT/HCPCS: 11042 ==

== ENCOUNTER → 2024-06-13 15:05 | Outpatient (CLI) | payer MEDICARE, OTHER, SELFPAY | LOC: WC 15:06 | PROVIDERS: PCP Physician Assistant; Referring Provider Nurse Practitioner Family; Visit Provider Surgery | DX: S91.301A Unspecified open wound, right foot, initial encounter (principal); R60.0 Localized edema; L53.9 Erythematous condition, unspecified; G62.9 Polyneuropathy, unspecified; L98.8 Other specified disorders of the skin and subcutaneous tissue | CPT/HCPCS: 11042 ==

== ENCOUNTER → 2024-06-19 15:18 | Outpatient (CLI) | payer MEDICARE, OTHER, SELFPAY | LOC: WC 15:19 | PROVIDERS: PCP Physician Assistant; Referring Provider Nurse Practitioner Family; Visit Provider Surgery | DX: S91.311A Laceration without foreign body, right foot, initial encounter (principal); G62.9 Polyneuropathy, unspecified; R60.0 Localized edema | CPT/HCPCS: 11042 ==

== ENCOUNTER → 2024-06-22 11:34 | Outpatient (CLI) | payer MEDICARE, OTHER, SELFPAY | LOC: WC 11:35 | PROVIDERS: PCP Physician Assistant; Referring Provider Nurse Practitioner Family; Visit Provider Physician Assistant | DX: S91.311A Laceration without foreign body, right foot, initial encounter (principal) | CPT/HCPCS: 99212 ==

== ENCOUNTER → 2024-06-26 10:44 | Outpatient (CLI) | payer MEDICARE, OTHER, SELFPAY | LOC: WC 10:45 | PROVIDERS: PCP Physician Assistant; Referring Provider Nurse Practitioner Family; Visit Provider Surgery | DX: L98.8 Other specified disorders of the skin and subcutaneous tissue (principal); S91.301A Unspecified open wound, right foot, initial encounter; R21 Rash and other nonspecific skin eruption; R60.0 Localized edema; G62.9 Polyneuropathy, unspecified | CPT/HCPCS: 11042 ==

== ENCOUNTER → 2024-07-03 10:59 | Outpatient (CLI) | payer MEDICARE, OTHER, SELFPAY | PROVIDERS: PCP Physician Assistant; Referring Provider Nurse Practitioner Family; Visit Provider Surgery | DX: L98.8 Other specified disorders of the skin and subcutaneous tissue (principal); S91.301A Unspecified open wound, right foot, initial encounter; R60.0 Localized edema; R21 Rash and other nonspecific skin eruption; G62.9 Polyneuropathy, unspecified | CPT/HCPCS: 11042; 99213 ==

== ENCOUNTER → 2024-07-10 10:10 | Outpatient (CLI) | payer MEDICARE, OTHER, SELFPAY | PROVIDERS: PCP Physician Assistant; Referring Provider Physician Assistant; Visit Provider Surgery | DX: L98.8 Other specified disorders of the skin and subcutaneous tissue (principal); S91.301A Unspecified open wound, right foot, initial encounter; R60.0 Localized edema; R21 Rash and other nonspecific skin eruption; G62.9 Polyneuropathy, unspecified | CPT/HCPCS: 11042 ==

== ENCOUNTER → 2024-07-24 11:06 | Outpatient (CLI) | payer MEDICARE, OTHER, SELFPAY | PROVIDERS: PCP Physician Assistant; Referring Provider Nurse Practitioner Family; Visit Provider Surgery | DX: S91.312A Laceration without foreign body, left foot, initial encounter (principal); R60.0 Localized edema; G62.9 Polyneuropathy, unspecified; R21 Rash and other nonspecific skin eruption | CPT/HCPCS: 11042 ==

== ENCOUNTER → 2024-08-29 12:01 | Outpatient (CLI) | payer MEDICARE, OTHER, SELFPAY | PROVIDERS: PCP Physician Assistant; Referring Provider Nurse Practitioner Family; Visit Provider Surgery | DX: S91.301D Unspecified open wound, right foot, subsequent encounter (principal); R21 Rash and other nonspecific skin eruption; R60.0 Localized edema; G62.9 Polyneuropathy, unspecified | CPT/HCPCS: 99211; 99213 ==

== ENCOUNTER → 2024-10-03 15:34 | Outpatient (CLI) | payer MEDICARE, OTHER, SELFPAY ==
[2024-10-03 16:59] LABS: Add Manual Diff / Slide Review NO; Basophils Absolute Auto 100 /uL (0-100); Basophils Percent Auto 0.9 % (0-2); Eosinophils Absolute Auto 100 /uL (0-450); Hematocrit 40.7 % (36-46); Hemoglobin 13.8 g/dL (12.0-16.0); Lymphocytes Absolute Auto 1100 /uL (1100-4500); Lymphocytes Percent Auto 17.2 % (25-40); Mean Corpuscular Hemoglobin 28.1 PG (26-34); Mean Corpuscular Volume 82.5 fL (80-100); Monocytes Absolute Auto 400 /uL (0-900); Monocytes Percent Auto 6.5 % (3-14); Neutrophils Absolute Auto 4700 /uL (1500-7000); Neutrophils Percent Auto 73.4 % (50-75); Platelet Count 178 X10^3/uL (150-400); Red Blood Cell Count 4.93 X10^6/uL (4.0-5.2); White Blood Cell Count 6.4 X10^3/uL (4.5-11.0)
[2024-10-03 17:24] LABS: Hemoglobin A1C% w Est Avg Glu 5.3 % (4.0-6.0)
[2024-10-03 17:52] LABS: Alanine Aminotransferase 20 IU/L (<35); Albumin 4.4 g/dL (3.5-5.0); Albumin Globulin Ratio 1.4 (1.0-2.8); Alkaline Phosphatase 85 U/L (38-126); Aspartate Aminotransferase 27 IU/L (14-36); BUN Creatinine Ratio 19.7 (6-22); Bilirubin Total 1.3 mg/dL (0.2-1.3); Blood Urea Nitrogen 14 mg/dL (7-17); Calcium 9.5 mg/dL (8.4-10.2); Carbon Dioxide 25 mmol/L (22-32); Chloride 103 mmol/L (98-107); Cholesterol 227 mg/dL (140-199); Estimated Glomerular Filt Rate > 60 mL/min (>60); Globulin 3.2 g/dL (1.7-4.1); Glucose 108 mg/dL (80-110); HDL Cholesterol 43 mg/dL (40-60); HEMOLYSIS < 15 (0-50); LDL Cholesterol Calculated 141 mg/dL (<100); Potassium 3.8 mmol/L (3.4-5.1); Sodium 136 mmol/L (137-145); Total Protein 7.6 g/dL (6.3-8.2); Triglycerides 214 mg/dL (35-150)
[2024-10-03 18:17] LABS: TSH w/ Reflex to FT4 0.49 uIU/mL (0.47-4.68)
== END ==
PROVIDERS: PCP Nurse Practitioner Family; Referring Provider Nurse Practitioner Family; Visit Provider Nurse Practitioner Family
DX: L65.9 Nonscarring hair loss, unspecified (principal); E66.9 Obesity, unspecified; Z13.29 Encounter for screening for other suspected endocrine disorder; R03.0 Elevated blood-pressure reading, without diagnosis of hypertension
CPT/HCPCS: 36415; 80053; 80061; 83036; 84443; 85025

== ENCOUNTER → 2024-11-16 13:45 | Outpatient (CLI) | payer MEDICARE, OTHER, SELFPAY ==
--- NOTE | 2024-11-16 13:47 | DI.ECHO.S_ITS ---
[facility] [place] [facility]+ [facility] : : [id number] : [place] : : [id number] : : Phone: [phone] Echocardiogram Report + + :Name: ZOFIA TOMAS Study Date: 11/16/2024 Height: 66 in : :[facility] ReadingLocation: Weight: 245 lb : : Gender: Female BSA: 2.2 m2 : :: 1960 Age: 64 yrs BP: 103/60 mmHg: :Reason For Study: MURMUR : :Ordering Physician: NISSA, : :WALI Performed By: Roney Clement : :Referring: WAIL AZAR : + + Interpretation Summary The study quality was technically difficult. At least moderately reduced LVEF. Unbale to quantify function due to poor image quality and no use of definity. Grade I diastolic dysfunction. The right ventricle is normal in size and function. There is mild mitral regurgitation. There is moderate to severe aortic stenosis. The IVC is of normal diameter and collapses greater than 50% with a sniff. This suggests a low right atrial pressure of 3 mm Hg. We recommend cardiology evaluation. Procedure: A two-dimensional transthoracic echocardiogram with color flow and Doppler was performed. The study quality was technically difficult. Comparison is made with the echocardiogram of 08/09/2022. The patient was in normal sinus rhythm during the exam. Left Ventricle: The left ventricle is normal in size. Left ventricular wall thickness is mildly increased. There is no ventricular septal defect visualized. At least moderately reduced LVEF. Unbale to quantify function due to poor image quality and no use of definity. Grade I diastolic dysfunction. Right Ventricle: The right ventricle is normal in size and function. Atria: The left atrial size is normal. Right atrial size is normal. There is no Doppler evidence for an interatrial shunt. Mitral Valve: There is mild mitral annular calcification. The mitral valve leaflets appear mildly thickened, but open well. There is mild mitral regurgitation. Aortic Valve: The aortic valve is trileaflet. The aortic valve is moderately calcified. There is moderate to severe aortic stenosis. The peak aortic velocity is 3.5 m/sec. The aortic valve mean gradient is 34.0 mmHg. The calculated aortic valve area is 0.6 cm2. No aortic regurgitation is present. Tricuspid Valve: The tricuspid valve is not well visualized, but is grossly normal. No tricuspid regurgitation. Pulmonic Valve: The pulmonic valve is not well visualized. There is no pulmonic valvular regurgitation. Great Vessels: The aortic root is normal size. The dimensions of the ascending aorta are normal. The pulmonary artery is not well visualized, but is probably normal size. The IVC is of normal diameter and collapses greater than 50% with a sniff. This suggests a low right atrial pressure of 3 mm Hg. Pericardium/ Pleura There is no pericardial effusion. There is no pleural effusion. MMode/2D Measurements & Calculations LVIDd: 5.5 cm LVOT diam: 1.7 cm LVIDs: 4.9 cm Ao root diam: 3.6 cm FS: 11.2 % asc Aorta Diam: 3.4 cm EPSS: 1.7 cm IVSd: 1.2 cm LVPWd: 1.2 cm LV clemons. diameter/BSA (cm/m^2): 2.5 LV sys. diameter/BSA (cm/m^2): 2.2 LA A2 area: 18.6 cm2 RA long axis: 3.6 cm LA A4 area: 21.0 cm2 RA area: 10.1 cm2 LA length (vol): 5.6 cm RA vol: 23.6 ml LA vol: 58.9 ml RA : 10.8 ml/m2 LA vol index: 27.0 ml/m2 IVC diam: 1.3 cm RVD1 (basal): 3.3 cm RVD2 (mid): 2.7 cm TAPSE: 2.2 cm Doppler Measurements & Calculations Ao V2 max: 349.1 cm/sec LVOT Max Madhav: 82.2 cm/sec Ao V2 mean: 281.4 cm/sec LV V1 max P.7 mmHg Ao max P.7 mmHg LV V1 VTI: 21.3 cm Ao mean P.0 mmHg SRUTHI(I,D): 0.57 cm2 Ao V2 VTI: 87.8 cm SRUTHI(V,D): 0.55 cm2 sev ratio: 0.24 SRUTHI indexed to BSA (cm^2/m^2): 0.26 MV E max madhav: 92.5 cm/sec PA V2 max: 66.0 cm/sec MV A max madhav: 82.9 cm/sec PA V2 mean: 45.9 cm/sec MV E/A: 1.1 PA mean P.92 mmHg Med Peak E' Madhav: 4.5 cm/sec E/E' med: 20.6 Lat Peak E' Madhav: 5.3 cm/sec E/E' lat: 17.6 E/e' average: 19.1 MV dec time: 0.18 sec SV(LVOT): 50.1 ml Reading Physician:05:05 PM
== END ==
LOC: ECHO 13:46
PROVIDERS: PCP Nurse Practitioner Family; Referring Provider Nurse Practitioner Family; Visit Provider Nurse Practitioner Family
DX: I08.0 Rheumatic disorders of both mitral and aortic valves (principal); R01.1 Cardiac murmur, unspecified
CPT/HCPCS: 93306

== ENCOUNTER → 2025-07-03 12:24 | Outpatient (CLI) | payer MEDICARE, OTHER, SELFPAY | LOC: ECHO 12:26 | PROVIDERS: PCP Nurse Practitioner Family; Referring Provider Internal Medicine Cardiovascular Disease; Visit Provider Internal Medicine Cardiovascular Disease | DX: I08.1 Rheumatic disorders of both mitral and tricuspid valves (principal) | CPT/HCPCS: 93306; Q9957 ==

== ENCOUNTER → 2025-07-19 10:46 | Outpatient (CLI) | payer MEDICARE, OTHER, SELFPAY ==
[2025-07-19 11:45] LABS: Blood Urea Nitrogen 18 mg/dL (7-17); Calcium 9.5 mg/dL (8.4-10.2); Carbon Dioxide 29 mmol/L (22-32); Chloride 103 mmol/L (98-107); Estimated Glomerular Filt Rate > 60 mL/min (>60); Glucose 113 mg/dL (70-99); HEMOLYSIS < 15 (0-50); Potassium 4.9 mmol/L (3.4-5.1); Sodium 140 mmol/L (137-145)
== END ==
PROVIDERS: PCP Nurse Practitioner Family; Referring Provider Internal Medicine Cardiovascular Disease; Visit Provider Internal Medicine Cardiovascular Disease
DX: I50.22 Chronic systolic (congestive) heart failure (principal)
CPT/HCPCS: 36415; 80048